=== PATIENT | female | born 1940 | race Caucasian/White ===

== ENCOUNTER → 2016-11-01 | Outpatient (CLI) | payer OTHER, MEDICARE ==
[~2016-11-01] VITALS: Ht 160 cm; Wt 82.3 kg
[~2016-11-01] MED LIST: ACCUNEB0.63 MG/3; ALPRAZOLAM 0.0.25 M1 PO; ANASPAZ0.125 MG PO; ANTIVERT25 MG PO; APAP500; ASPIRIN EC81 M1 PO; ATIVAN0.5 MG PO; ATORVASTATIN CA40 MG PO; ATROVENT HFA14 GM INH; BACTRIM DS TAB1 EACH PO; BENZONATATE100 MG PO; CELEXA10 MG PO; LEVOTHYROXINE0.05 MG PO; LOVASTAT40 PO; MOBIC15 MG PO; MULTIVITAMINS1 EAC7 PO; NORCO 5-325 TA1 EACH PO; PREDNISONE 10 M10 MG PO; PRILOSEC 20 MG20 MG PO; PROAIR HFA8.5 GM INH; QUESTRAN LIGHT P4 GM PO; SPIRIVA INH; SYMBICORT160 MCG/4. INH; TRAMADOL 50 MG50 MG PO; VITAMIN D-32000 UNIT PO; ZOFRAN ODT4 MG PO
--- NOTE | ~2016-11-01 | HPC ---
[address] [address] PAIN MANAGEMENT CONSULTATION Name: CHAR JONES Room #: REG DALLAS Amaro#: [id number] Admission: 11/01/16 Attend Phys: Simeon Jacques DO Discharge: Date of : 39 Report #: [id number] THIS REPORT FOR: //name// CC: Simeon Sloan MD DATE OF SERVICE: 11/01/2016 DATE OF SERVICE: 11/01/2016 CHIEF COMPLAINT: Bilateral knee pain. HISTORY OF PRESENT ILLNESS: As you know, patient is a very pleasant 75-year-old female, who suffers from bilateral knee pain due to severe osteoarthritis. She was originally seen in our clinic for low back pain for which we treated with epidural injections successfully. She continues to experience bilateral knee pain and has undergone one Synvisc injection series with good efficacy. She returns today for the second in a staged procedure of Synvisc injections with plans to complete this series 2 weeks from today. She returns today for Synvisc injections placing pain score at around 5/10. States the pain is chronic, aching, cramping and shooting in sensation, exacerbated with weightbearing and standing as well as walking, improves with sitting and medications. She returns today for the second in the series of Synvisc injections. ALLERGIES: No known drug allergies. CURRENT MEDICATIONS: Meclizine, hydrocodone, citalopram, atorvastatin, lorazepam, multivitamin, Symbicort, albuterol, omeprazole, cholecalciferol, levothyroxine, aspirin, and acetaminophen. PHYSICAL EXAMINATION: VITAL SIGNS: Blood pressure 135/66, pulse 88, respiratory rate 16, unlabored. The patient is 95% on room air. Height 5 feet 3 inches tall, weight 181.3 pounds, BMI calculated at 31.1. GENERAL: Well developed, well nourished, well hydrated exogenously obese 75-year-old female appearing stated age. She is placing pain score today at approximately 5/10. HEENT: Normocephalic, atraumatic. Pupils equal, round, reactive to light. Extraocular muscles are intact. EXTREMITIES: Show no clubbing, no cyanosis, no edema. MUSCULOSKELETAL: Active and passive range of motion knees noted to cause intensification of pain. Standing from a seated position also intensifies pain, walk is mildly antalgic. Appears to be favoring left lower extremity over right. Position improves pain. Lying position, improves pain. [address] [address] PAIN MANAGEMENT CONSULTATION Name: CHAR JONES Room #: REG CLI [facility].#: [id number] Admission: 11/01/16 Attend Phys: Simeon Jacques DO Discharge: Date of : 39 Report #: [id number] ASSESSMENT: 1. Bilateral knee pain. 2. Bilateral osteoarthritis of the knees. 3. Chronic intractable pain. PLAN: 1. The patient has returned today in followup visit to undergo intraarticular injections with Synvisc. This is the second in the staged procedure that she is planning to undergo We have consented the patient to undergo procedure. She states she understands her risks and benefits and does wish to proceed. 2. No medication changes were made at today's visit. The patient continue current medical therapy as previously prescribed. 3. The patient is to return to our clinic in 2 weeks. At that time, undergo the 3rd and final of the Synvisc injections in the 6-month period. PROCEDURE NOTE DESCRIPTION OF PROCEDURE: Bilateral intraarticular knee injections with Synvisc. After obtaining written consent, the patient was taken back to fluoroscopy suite, placed in a supine position on the radiolucent table. The image intensifier was then brought into position over the knees and x-ray imaging was obtained in AP fashion. The area of the lateral knee, both left and right side were prepped and draped with chlorhexidine. A #27 gauge 1-1/4 inch needle was used to anesthetize skin and subcutaneous tissue, with 2 mL 1% lidocaine on the left and 2 mL 1% lidocaine on the right. This needle was then removed. The second #25 gauge 2-inch needle was advanced under fluoroscopic guidance into the knee joint. After aspiration noted to be negative for heme, 2 mL of Synvisc hyaline G-F 20 was injected in each knee, needles retracted half way, flushed with 1 mL of 1% lidocaine and removed from each of the joints. Sterile bandage was placed over each of the injection sites. There were no motor deficits present after the procedure. The patient tolerated procedure well, carefully escorted go to recovery in stable condition. No apparent complications. After meeting discharge criteria, the patient discharged home. <ELECTRONICALLY SIGNED> By: Simeon Jacques DO 11/02/16 0743 [id number] 1236 Simeon Jacques DO /nt
[2016-11-01 09:54] VITALS: BP 135/66
== END | disposition home or self-care (01) ==
LOC: PAIN 10-25 14:45
DX: M16.0 Bilateral primary osteoarthritis of hip (principal); F41.9 Anxiety disorder, unspecified; G89.29 Other chronic pain; Z87.891 Personal history of nicotine dependence

== ENCOUNTER → 2017-02-14 | Outpatient (CLI) | payer OTHER, MEDICARE ==
[~2017-02-14] VITALS: Ht 160 cm; Wt 78.0 kg
--- NOTE | ~2017-02-14 | HPC ---
[facility] [place] [place] [address] PAIN MANAGEMENT CONSULTATION Name: CHAR JONES Room #: REG DALLAS Prem#: [id number] Admission: 02/14/17 Attend Phys: Simeon Jacques DO Discharge: Date of : 39 Report #: [id number] THIS REPORT FOR: //name// CC: Simeon Sloan MD DATE OF SERVICE: 02/14/2017 REFERRING PHYSICIAN: Shanique Sloan M.D. CHIEF COMPLAINT: Bilateral knee pain. HISTORY OF PRESENT ILLNESS: As you know, the patient is a 76-year-old female who returns today in followup visit to undergo next in the series of Synvisc injections. She reports good analgesic benefit with these injections. The last injection was 11/15/2016. She has been doing well with these injections, but has had a slow and progressive return of symptoms. Her symptoms are exacerbated with walking and weightbearing. She returns today requesting next in the series of Synvisc injections in hopes of building on the success of previous intervention. She is reporting about an 80% improvement in symptoms with these injections. Pain today is rated at 6/10. ALLERGIES: No known drug allergies. CURRENT MEDICATIONS: Benzonatate, Bactrim, meclizine, hydrocodone, citalopram, atorvastatin, lorazepam, multivitamin, Symbicort, albuterol, omeprazole, cholecalciferol, levothyroxine, aspirin and acetaminophen. SOCIAL HISTORY: The patient denies tobacco, alcohol, IV or illicit drug use. She is unaccompanied today. IMAGING: No new imaging available. PHYSICAL EXAMINATION: VITAL SIGNS: Blood pressure 121/63, pulse is 90 and respiratory rate 16, unlabored. The patient is 96% on room air. Height 5 feet 3 inches tall, weight 172 pounds and BMI at 30.5. GENERAL: Well-developed, well-nourished and well-hydrated 76-year-old female, appearing her stated age. She is placing current pain score at 6/10. HEENT: Normocephalic, atraumatic. Pupils equal, round and reactive to light. Extraocular muscles are intact. EXTREMITIES: Show no clubbing, no cyanosis, no edema. MUSCULOSKELETAL: Active and passive range of motion of the knees bilaterally cause intensification of pain. There is no laxity in the ligamentous structures. Weightbearing causes intensification of pain, left greater than [facility] [address] [place] [address] PAIN MANAGEMENT CONSULTATION Name: CHAR JONES Room #: REG CLI [facility]#: [id number] Admission: 02/14/17 Attend Phys: Simeon Jacques DO Discharge: Date of : 39 Report #: [id number]. ASSESSMENT: 1. Bilateral knee pain. 2. Bilateral knee osteoarthritis. 3. Chronic intractable pain. PLAN: 1. The patient returns today in followup visit to undergo Synvisc injection in the bilateral knees. She has done very well with these Synvisc injections in the past and is hopeful to see similar improvement today. The patient has been advised of risks and benefits of the procedure. These risks include but are not necessarily limited to bleeding, bruising, infection, worsening pain, no relief of pain, also risk of temporary or permanent muscle weakness, temporary or permanent nerve damage or possible joint destruction. The patient states she understood and wished to proceed. 2. No medication changes were made at today's visit. The patient to just continue current medical therapy as previously prescribed. 3. The patient will return to our clinic on an as needed basis for the next in the series of Synvisc injections. If the patient does not note good long-term efficacy with this, I would recommend the patient be seen by orthopedic surgery, Dr. Jose Carlos Ureña in particular, to discuss treatments for bilateral knee osteoarthritis. PROCEDURE NOTE PROCEDURE: Bilateral intra-articular knee injections with Synvisc under fluoroscopic guidance. DESCRIPTION OF PROCEDURE: After obtaining written consent, the patient was taken back to fluoroscopy suite, placed in a supine position on a radiolucent table. Image intensifier was then brought into position over the left knee and x-ray imaging was obtained in the AP fashion. The area of the lateral knee was then prepped and draped with chlorhexidine. A 27-gauge 1-1/4 inch needle was used to anesthetize skin and subcutaneous tissue with 2 mL of 1% lidocaine. A 25-gauge 2-inch needle was then advanced under fluoroscopic guidance into the knee joint. After negative aspiration for heme, 2 mL of Synvisc Hyaline G-F 20 was injected in the left knee. Needle was then retracted senior care, flushed with 1 mL of 1% lidocaine and removed. Sterile bandage was placed over this injection site. Our attention was then directed to the right knee. Image intensifier was then brought into position over the right knee and an AP imaging was obtained. The lateral portion of the knee was then prepped and draped in aseptic fashion using chlorhexidine. A 27-gauge 1-1/4 inch needle was then used to anesthetize skin [address] [address] PAIN MANAGEMENT CONSULTATION Name: CHAR JONES Room #: REG [place]AS Amaro#: [id number] Admission: 02/14/17 Attend Phys: Simeon Jacques DO Discharge: Date of : 39 Report #: [id number] and subcutaneous tissue with 2 mL of 1% lidocaine. A 25-gauge 2-inch needle was then advanced under fluoroscopic guidance into the knee joint itself. After negative aspiration for heme, 2 mL of Synvisc Hyaline G-F 20 was injected into the right knee and the needle was then retracted senior care, flushed with 1 mL of 1% lidocaine. Needle was then removed. Sterile bandage placed over the injection site. The patient tolerated procedure well, carefully escorted to the recovery in stable condition. No apparent complications. After meeting discharge criteria, the patient discharged home. By: 0824 1303 Simeon Jacques DO /nt
[2017-02-14 12:45] VITALS: BP 121/63
== END | disposition home or self-care (01) ==
LOC: PAIN 07:46
DX: M17.0 Bilateral primary osteoarthritis of knee (principal); G89.29 Other chronic pain; J44.1 Chronic obstructive pulmonary disease with (acute) exacerbation

== ENCOUNTER → 2017-02-28 | Outpatient (CLI) | payer OTHER, MEDICARE ==
[~2017-02-28] VITALS: Ht 162.6 cm; Wt 78.9 kg
--- NOTE | ~2017-02-28 | HPC ---
[facility] [place] [address] PAIN MANAGEMENT CONSULTATION Name: CHAR JONES Room #: REG D[place]AS kT.#: [id number] Admission: 02/28/17 Attend Phys: Simeon Jacques DO Discharge: Date of : 39 Report #: [id number] THIS REPORT FOR: //name// CC: Simeon Sloan MD DATE OF SERVICE: 02/28/2017 DATE OF SERVICE: 02/28/2017 CHIEF COMPLAINT: Bilateral knee pain. HISTORY OF PRESENT ILLNESS: As you know, the patient is a 76-year-old female, who returns today in followup visit to undergo the next in a series of Synvisc injections. The patient reported good analgesia with the previous Synvisc injection performed on 02/14/2017. This is the second in the series of Synvisc injections for this series. She has done very well with pain today, rated only 6/10 that is chronic in nature. Exacerbated with weightbearing and walking, improves with [facility] medications and Synvisc procedures. She returns today for the next in a series of Synvisc injections in hopes of improving pain for a long period of time. ALLERGIES: No known drug allergies. CURRENT MEDICATIONS: Benzonatate, Bactrim, meclizine, hydrocodone, citalopram, atorvastatin, lorazepam, multivitamin, Symbicort, albuterol, omeprazole, cholecalciferol, levothyroxine, aspirin, and acetaminophen. SOCIAL HISTORY: The patient denies tobacco, alcohol, IV or illicit drug use. She is retired. She is unaccompanied today. IMAGING: No new imaging available. PHYSICAL EXAMINATION: VITAL SIGNS: Blood pressure 125/62, pulse is 81, respiratory rate 16, unlabored. The patient is 100% on room air, height 5 feet 4 inches tall, weight 174 pounds, BMI calculated 29.9. GENERAL: Well developed, well nourished, well hydrated 76-year-old female appearing stated age, placing current pain score 6/10. HEENT: Normocephalic, atraumatic. Pupils equal, round, reactive to light. EXTREMITIES: Show no clubbing, no cyanosis, no edema. MUSCULOSKELETAL: The patient has pain with standing from a seated position and weightbearing exacerbates symptoms. Passive and active range of motion of the knees are met with increasing pain. Mild restrictions. There is no ligamentous laxity. [address] [address] PAIN MANAGEMENT CONSULTATION Name: CHAR JONES Room #: REG CLI [facility]#: [id number] Admission: 02/28/17 Attend Phys: Simeon Jacques DO Discharge: Date of : 39 Report #: [id number] ASSESSMENT: 1. Bilateral knee pain. 2. Bilateral knee osteoarthritis. 3. Chronic intractable pain. PLAN: 1. The patient has returned today in followup visit for the second in series of Synvisc injections. We have achieved authorization to undergo this portion of the procedure. We have obtained the Synvisc injections to be provided today. I have discussed with the patient the risks of the procedure itself. These risks include but are not necessarily limited to bleeding, bruising, infection, worsening pain, no relief of pain, also risk of temporary or permanent muscle weakness, temporary or permanent nerve damage and joint destruction. The patient states understood and wished to proceed. 2. No medication changes were made at today's visit. The patient will continue current medical therapy as previously prescribed. 3. The patient will return to our clinic in 2 weeks for the third in the series of Synvisc injections. DESCRIPTION OF PROCEDURE: Bilateral intraarticular knee injections with Synvisc under fluoroscopic guidance. After obtaining written consent, the patient was taken back to fluoroscopy suite, placed in prone position on a radiolucent table. Image intensifier was then brought into position over the left knee and AP imaging was obtained. The area of the lateral knee was then prepped and draped in aseptic fashion using chlorhexidine. A #27-gauge 1-1/4 inch needle was then used to anesthetize skin and subcutaneous tissue with 1 mL of 1% lidocaine preservative free. A #25 gauge 2-inch needle was then advanced under fluoroscopic guidance into the knee joint. This was done under live fluoroscopy. After negative aspiration for heme, 2 mL of Synvisc hyaline was injected in the left knee. Needle was retracted intermediate, flushed with 1 mL of 1% lidocaine and removed. Sterile bandage was placed over this injection site. Our attention was then directed to the right knee. Image intensifier was then brought into position over the right knee. AP imaging was obtained. The lateral portion of the knee was then prepped and draped in aseptic fashion using chlorhexidine. A #27-gauge 1-1/4 inch needle was then used to anesthetize skin and subcutaneous tissue with 1.5 mL of lidocaine 1% with preservative-free lidocaine. A #25-gauge 2-inch needle was then advanced under fluoroscopic guidance into the knee joint. After negative aspiration for heme, 2 mL of Synvisc hyaline G-F20 was injected into the right knee and needle was then retracted intermediate, flushed with 1 mL of 1% lidocaine and removed. Sterile bandage was placed over injection site. [address] [address] PAIN MANAGEMENT CONSULTATION Name: CHAR JONES Room #: REG D[place]AS Amaro#: [id number] Admission: 02/28/17 Attend Phys: Simeon Jacques DO Discharge: Date of : 39 Report #: [id number] The patient tolerated procedure well, carefully escorted to the recovery room in stable condition. No apparent complications. After meeting discharge criteria, the patient discharged home. <ELECTRONICALLY SIGNED> By: Simeon Jacques DO 03/08/17 0937 0728 5 Simeon Jacques DO /nt
[2017-02-28 11:05] VITALS: BP 125/62
== END | disposition home or self-care (01) ==
LOC: PAIN 02-21 06:45
DX: M17.0 Bilateral primary osteoarthritis of knee (principal); G89.29 Other chronic pain; J44.1 Chronic obstructive pulmonary disease with (acute) exacerbation

== ENCOUNTER → 2017-03-14 | Outpatient (CLI) | payer OTHER, MEDICARE ==
[~2017-03-14] VITALS: Ht 162.6 cm; Wt 79.0 kg
--- NOTE | ~2017-03-14 | HPC ---
[facility] [place] [address] PAIN MANAGEMENT CONSULTATION Name: CHAR JONES Room #: REG D[place]AS Prem#: [id number] Admission: 03/14/17 Attend Phys: Simeon Jacques DO Discharge: Date of : 39 Report #: [id number] THIS REPORT FOR: //name// CC: Simeon Sloan DATE OF SERVICE: 03/14/2017 CHIEF COMPLAINT: Bilateral knee pain. HISTORY OF PRESENT ILLNESS: As you know, the patient is a very pleasant 76-year-old female who returns today in followup visit for the third in the series of Synvisc injections. She has reported good analgesia with the first two in the series, now reporting pain score 4/10. States her pain is aching and sharp in sensation; exacerbated with walking and weightbearing; improves with sitting, medications and these injections. She returns today for the third and final in the series of Synvisc injections in the 6 months. She is placing pain score today at 4/10. She has had no change in her medical history in the past 2 weeks. ALLERGIES: No known drug allergies. CURRENT MEDICATIONS: Benzonatate, Bactrim, meclizine, hydrocodone, citalopram, atorvastatin, lorazepam, multivitamin, Symbicort, albuterol, omeprazole, cholecalciferol, levothyroxine, aspirin, and acetaminophen. SOCIAL HISTORY: The patient denies tobacco, alcohol, IV or illicit drug use. She is retired, unaccompanied today. IMAGING: No new imaging of the knees is available. PHYSICAL EXAMINATION: VITAL SIGNS: Blood pressure 121/63, pulse 77, respiratory rate 16 and unlabored. The patient is 98% on room air. Height 5 feet 4 inches tall, weight 174.2 pounds, BMI calculated at 29.9. GENERAL: Well-developed, well-nourished, well-hydrated 76-year-old female appearing stated age. Pain is rated at 4/10 age. HEENT: Normocephalic, atraumatic. Pupils equal, round, reactive to light. EXTREMITIES: Show no clubbing, no cyanosis, no edema. MUSCULOSKELETAL: The patient does elicit pain with active and passive range of motion of the knees themselves. There is mild restriction of motion secondary to pain. Lateral collateral and medial collateral ligaments appear intact. Drawer tests negative. ASSESSMENT: [address] [address] PAIN MANAGEMENT CONSULTATION Name: CHAR JONES Room #: REG CLNapoleon Amaro#: [id number] Admission: 03/14/17 Attend Phys: Simeon Jacques DO Discharge: Date of : 39 Report #: [id number] 1. Bilateral knee pain. 2. Bilateral knee osteoarthritis. 3. Chronic intractable pain secondary to osteoarthritis. PLAN: 1. The patient returns today in followup visit to undergo the third and the final of the 6-month series of Synvisc injections. The patient has had a steady improvement in symptoms, now reporting pain score 4/10. She states she is able to stand for longer periods of time and walk for longer periods of time with the previous two Synvisc injections. She is hopeful to see a good improvement in pain and resolution of some of her remaining pain with the injections today. She has been advised of risks and benefits of the procedure, states she understood and does wish to proceed. 2. No medical changes were made in today's appointment. She is to continue current medical therapy as previously prescribed. 3. The patient will return to our clinic on an as needed basis, we can restart the next in the series of Synvisc injections 6 months from the initial bilateral injections of 11/15/2016. PROCEDURE NOTE DESCRIPTION OF PROCEDURE: Bilateral intraarticular knee injections with Synvisc under fluoroscopic guidance. After obtaining written consent, the patient was taken back to fluoroscopy suite, placed in prone position on a radiolucent table. Image intensifier was then brought into position over the left knee and an AP imaging was obtained. The area of the lateral knee was then prepped and draped in aseptic fashion using chlorhexidine. A 27-gauge 1-1/4-inch needle was then used to anesthetize skin and subcutaneous tissue with 1 mL of 1% preservative-free lidocaine. A 25-gauge, 2-inch needle was then advanced under fluoroscopic guidance into the knee joint itself. This was done under live fluoroscopy. After negative aspiration for heme, 2 mL of Synvisc hyaline G-F20 was injected into the left knee. Needle was retracted care home, flushed with 1 mL of 1% lidocaine and removed. Sterile bandage was then placed over injection site. Our attention was then directed to the right knee. Image intensifier was then brought into position over the right knee. AP imaging was obtained. The lateral portion of the knee was prepped and draped in aseptic fashion using chlorhexidine. A 27-gauge, 1-1/4-inch needle was then used to anesthetize skin and subcutaneous tissue with 1 mL of 1% preservative-free lidocaine. A 25-gauge, 2-inch needle was then advanced under fluoroscopic guidance into the knee joint. After negative aspiration for heme, 2 mL of Synvisc hyaline G-F20 was injected into the right knee and needle was then retracted care home, flushed with 1 mL of 1% lidocaine and removed. Sterile bandage was placed over injection site. [facility] [address] [place] [place] [address] PAIN MANAGEMENT CONSULTATION Name: CHAR JONES Room #: REG CLI Tk.#: [id number] Admission: 03/14/17 Attend Phys: Simeon aJcques DO Discharge: Date of : 38 Report #: [id number] The patient tolerated the procedure well, carefully escorted to the recovery room in stable condition. No apparent complications. After meeting discharge criteria, the patient discharged home. <ELECTRONICALLY SIGNED> By: Simeon Jacques DO 03/16/17 0753 0909 1250 Simeon Jacques DO /nt
[2017-03-14 10:52] VITALS: BP 121/63
== END | disposition home or self-care (01) ==
LOC: PAIN 07:05
DX: M17.0 Bilateral primary osteoarthritis of knee (principal); G89.29 Other chronic pain; J44.1 Chronic obstructive pulmonary disease with (acute) exacerbation

== ENCOUNTER → 2017-06-06 | Outpatient (CLI) | payer OTHER, MEDICARE | LOC: RAD 13:00 | DX: R06.00 Dyspnea, unspecified (principal); R06.02 Shortness of breath ==

== ENCOUNTER 2017-10-10 11:41 | Emergency (ER) | payer OTHER, MEDICARE ==
[~2017-10-10] VITALS: Ht 162.6 cm; Wt 80.3 kg
--- NOTE | ~2017-10-10 | EKG ---
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
[2017-10-10 12:14] LABS: HEMATOCRIT 35.9 % (37.0-47.0); HEMOGLOBIN 12.2 gm/dL (12.0-15.0); MCH 29.9 pg (26.0-34.0); MCHC 34.1 g/dL (28.0-37.0); MCV 87.5 fL (80.0-100.0); RBC 4.1 mil/uL (4.20-5.00); WBC 7.9 thou/uL (4.0-11.0)
[2017-10-10 12:21] LABS: CALCIUM 9.1 mg/dL (8.5-10.1); CREATININE 0.9 mg/dL (0.6-1.0); POTASSIUM 4.2 mmol/L (3.5-5.1)
[2017-10-10] MEDS ORDERED: LEVAQUIN 750 M750 MG PO (13:00)
[2017-10-10] MEDS ORDERED: PREDNISONE 20 M20 MG PO (13:01)
== END 2017-10-10 13:10 | disposition home or self-care (01) ==
LOC: ER 11:41
PROVIDERS: Emergency Medicine
DX: J44.1 Chronic obstructive pulmonary disease with (acute) exacerbation (principal); R05 Cough; H26.9 Unspecified cataract; Z90.49 Acquired absence of other specified parts of digestive tract; Z90.710 Acquired absence of both cervix and uterus; Z98.890 Other specified postprocedural states

== ENCOUNTER 2018-10-19 10:31 | Emergency (ER) | payer OTHER, MEDICARE ==
[~2018-10-19] VITALS: Ht 162.6 cm; Wt 76.7 kg
[~2018-10-19 10:31] MED LIST changes: +AUGMENTIN 875-1 EACH PO; +FLONASE 0.05%50 MCG NASAL; +LEVAQUIN 750 M750 MG PO; +MOBIC7.5 MG PO; +MUCINEX D TABL1 EAC1 PO; +NORVASC2.5 MG PO; +PEPCID20 MG PO; +PRAVACHOL40 MG PO; +PREDNISONE 20 M20 MG PO; +PROBIOTIC1 EAC1 PO
[2018-10-19 11:28] LABS: HEMOGLOBIN 12.5 gm/dL (12.0-15.0); MCH 30.1 pg (26.0-34.0); MCHC 33.8 g/dL (28.0-37.0); MCV 89.1 fL (80.0-100.0); RBC 4.15 mil/uL (4.20-5.00); RDW 13.9 % (10.5-14.5); WBC 7.2 thou/uL (4.0-11.0)
[2018-10-19 11:36] LABS: ANION GAP 5 mmol/L (7-16); BUN 18 mg/dL (7-18); CALCIUM 8.9 mg/dL (8.5-10.1); CHLORIDE 99 mmol/L (98-107); CO2 31 mmol/L (21-32); CREATININE 0.8 mg/dL (0.6-1.0); GLUCOSE 101 mg/dL (74-106); POTASSIUM 4.2 mmol/L (3.5-5.1); SODIUM 135 mmol/L (136-145)
[2018-10-19 11:45] LABS: TROPONIN-I <0.06 ng/mL (<0.06)
[2018-10-19] MEDS ORDERED: ANTIVERT25 MG PO (12:15)
[2018-10-19] MEDS ORDERED: IPRATROPIU0.2 MG/1 M INH (12:16)
[2018-10-19] MEDS ORDERED: VITAMIN D2000 UNIT PO (12:16)
[2018-10-19] MEDS ORDERED: PREDNISONE 20 M20 MG PO (12:39)
[2018-10-19 13:40] VITALS: BP 123/58
--- NOTE | 2018-10-21 21:46 | EKG ---
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
== END 2018-10-19 13:15 | disposition home or self-care (01) ==
LOC: ER 10:31
PROVIDERS: Emergency Medicine
DX: J44.1 Chronic obstructive pulmonary disease with (acute) exacerbation (principal); Z88.8 Allergy status to other drugs, medicaments and biological substances; Z90.49 Acquired absence of other specified parts of digestive tract; Z90.710 Acquired absence of both cervix and uterus; Z90.10 Acquired absence of unspecified breast and nipple; Z96.651 Presence of right artificial knee joint

== ENCOUNTER 2018-12-02 04:45 | Inpatient (IN) | payer OTHER, MEDICARE ==
[2018-12-02] VITALS (7 sets, daily range): BP systolic 113–136; BP diastolic 54–73
[~2018-12-02] VITALS: Ht 162.6 cm; Wt 74.4 kg
[~2018-12-02 04:45] MED LIST changes: -ACCUNEB0.63 MG/3; +ALBUTEROL2.5 MG/31 INH; -APAP500; -CELEXA10 MG PO; +CELEXA40 MG PO; +IPRATROPIU0.2 MG/1 M INH; -MULTIVITAMINS1 EAC7 PO; +THERA M PLUS T1 EAC2 PO; +TYLENOL EXTRA500 MG PO; +VITAMIN D2000 UNIT PO
[2018-12-02] MEDS ORDERED: MOBIC7.5 MG PO (05:00)
[2018-12-02 05:06] LABS: ABSOLUTE NEUTROPHILS 10.8 thou/uL (1.4-8.2); BASOPHILS 0.7 % (0.0-2.0); EOSINOPHILS 3.1 % (0.0-3.0); HEMATOCRIT 35.4 % (37.0-47.0); HEMOGLOBIN 11.7 gm/dL (12.0-15.0); LYMPHOCYTES 15.3 % (24.0-44.0); MCH 29.5 pg (26.0-34.0); MCHC 33.1 g/dL (28.0-37.0); MCV 89.1 fL (80.0-100.0); MONOCYTES 6.4 % (1.0-8.0); PLATELET COUNT 477 thou/uL (150-400); POLYS 74.5 % (36.0-66.0); RBC 3.97 mil/uL (4.20-5.00); RDW 13.7 % (10.5-14.5); WBC 14.5 thou/uL (4.0-11.0)
[2018-12-02 05:20] LABS: ANION GAP 6 mmol/L (7-16); BUN 16 mg/dL (7-18); CALCIUM 9.5 mg/dL (8.5-10.1); CHLORIDE 99 mmol/L (98-107); CO2 30 mmol/L (21-32); CREATININE 0.9 mg/dL (0.6-1.0); GLUCOSE 113 mg/dL (74-106); SODIUM 135 mmol/L (136-145)
[2018-12-02 05:27] LABS: ALBUMIN 2.7 g/dL (3.4-5.0); MAGNESIUM 1.9 mg/dL (1.8-2.4); SGOT 20 U/L (15-37); SGPT 17 U/L (30-65); TOTAL BILIRUBIN 0.2 mg/dL (<0.1-1.0); TROPONIN-I <0.06 ng/mL (<0.06)
--- NOTE | 2018-12-02 06:40 | NUR ---
PT ARRIVED TO UNIT AT 0600, ON 4L O2 NC. TRANSFERRED SELF FROM CART TO BED, BECAME VERY WINDED, UNABLE TO CATCH BREATH, RT PLACED BACK ON BIPAP. PLACED ON TELE, VS AND HEIGHT/WEIGHT OBTAINED. EDUCATED ABOUT CALL LIGHT AND FALL PRECAUTIONS. STARTED IV ABX. STAYED ON BIPAP ABOUT 15 MINUTES THEN WANTED TO TRY NC AGAIN. STABLE IN ROOM, SHIFT REPORT GIVEN AT 0700.
[2018-12-02 09:38] LABS: ALBUMIN 2.7 g/dL (3.4-5.0)
[2018-12-02 10:02] LABS: TSH 12.105 uIU/mL (0.358-3.740)
[2018-12-02 11:14] LABS: BE(vivo) -0.8 mmol/L (-2 to +3); HCO3 25.3 mmol/L (22.0-26.0); PCO2 47.8 mmHg (35.0-45.0); PO2 116.7 mmHg (80.0-100.0); pH 7.341 (7.360-7.450)
[2018-12-02] MEDS ORDERED: TRELEGY ELLIPT1 EACH INH (14:06)
--- NOTE | 2018-12-02 14:12 | NUR ---
[age] YEAR OLD FEMALE ADMITTED TO 3WEST ROOM 364 UNDER THE CARE OF DR. MONTESINOS. PT WAS BROUGHT INTO THE ER PER EMS AFTER PT C/O BEING SOB FOR THREE HOURS AT HOME. PT ALERT AND ORIENTED TIMES FOUR. VSS, 97%4L NC, SR ON TELE. PT TOLERATES MEDS AND MEALS. PT UP TO BSC WITH ASSIST OF ONE. FAMILY AT BEDSIDE THIS AFTERNOON. WILL CONTINIUE TO MONITOR
--- NOTE | 2018-12-02 22:08 | EKG ---
[place] [address] [employer] [place] [address] ELECTROCARDIOGRAM REPORT Name: JONESCHAR Room #: 364-P ADM IN M.R.#: [id number] ������������������ Admission: 12/02/18 ������������������ Attend Phys: Kamran Gray MD Discharge: ������������������ Date of : 38 Report #: [id number] ����������������������������������������������������������������� [id number] THIS REPORT FOR: //name// [facility] ED Test Date: 2018-12-02 Test Time: 04:55:02 Pat Name: CHAR JONES Department: Room: 364 Gender: F Motor Tune Up Specialist: DEVON : 1940 Requested By: Brannon Baig Order Number: [id number] MD: Rolando Ayala Measurements Intervals [place] Rate: 111 P: 80 DC: 135 QRS: 16 QRSD: 75 T: 59 QT: 334 QTc: 454 Interpretive Statements Sinus tachycardia Multiple ventricular premature complexes Biatrial enlargement Compared to ECG 10/19/2018 11:07:51 Ventricular premature complex(es) now present Atrial abnormality now present Sinus rhythm no longer present Electronically Signed On 12-02-2018 22:08:44 INSPECTION MANAGER by Rolando Ayala [email or web address] ��������������������������������������������� <ELECTRONICALLY SIGNED> ���������������������������������������� By: Rolando Ayala MD ��������������������������������������������� 12/02/18 2208 [id number] Rolando Ayala MD /EPI
[2018-12-03 00:26] VITALS: BP 125/53
[2018-12-03 04:24] VITALS: BP 131/72
[2018-12-03 05:21] LABS: HEMOGLOBIN 10.6 gm/dL (12.0-15.0); MCH 29.6 pg (26.0-34.0); MCHC 33.2 g/dL (28.0-37.0); MCV 89.2 fL (80.0-100.0); RBC 3.58 mil/uL (4.20-5.00); RDW 13.6 % (10.5-14.5); WBC 16.8 thou/uL (4.0-11.0)
--- NOTE | 2018-12-03 05:30 | NUR ---
Requested tylenol for headache with good relief last night. She slept well during the night and woke up with just mild headache and tylenol given again this am. O2 at 3L/NC , shortness of breath with exertion. Afebrile. C/O constipation and requested dulcolax tab . Order obtained and med given to pt. Up with SBA to bathroom. Bed alarm on for safety. She calls appropriately for assistance. Making progress towards care plan goals.
[2018-12-03 05:35] LABS: CALCIUM 9.4 mg/dL (8.5-10.1); CREATININE 0.9 mg/dL (0.6-1.0); MAGNESIUM 2.1 mg/dL (1.8-2.4); POTASSIUM 4.4 mmol/L (3.5-5.1)
[2018-12-03 07:05] VITALS: BP 119/64
--- NOTE | 2018-12-03 12:25 | NUR ---
INITIAL ASSESSMENT: SW reviewed chart and spoke with nursing and attending physician. Pt was admitted from home due to COPD exacerbation. Pt is in droplet isolation. SW met with pt at bedside. Introduced role of SW. Pt is alert/orientated x 4. Pt reports she lives at home alone. Prior to admission, pt was independent with ADLs. Pt continues to drive. Pt has a cane to assist with ambulation. Pt is on nocturnal O2. Home O2 provided by [employer]. Pt states she has been using the O2 continuously since the first of the month. Pt has used HH in the past. Pt unable to recall name of HH agency. Pt will need rest/exercise oximetry to determine if pt needs O2 during the day. Pt's PCP is Dr. Shanique Sloan. Plan is for pt to discharge home when medically stable. SW is following to assist as needed with discharge planning.
--- NOTE | 2018-12-03 12:28 | NUR ---
Assess due to high nutrition screening risk identified. Visit with pt, lunch tray has just been delivered, pt states appetite now good, wt maybe down few pounds past month not feeling well. Likes the food. Low nutrition risk
[2018-12-03 16:20] VITALS: BP 119/65
--- NOTE | 2018-12-03 17:13 | NUR ---
ASSUMED CARE OF PT AT SHIFT CHANGE. PT CONTINUES WITH SOB WITH AMBULATION AND MOVING IN BED. O2 SAT REMAINED IN 90'S ON CONTINUOUS PULSE OX. IV SITE ROTATED DUE TO INFILTRAION/IRRITATION, NO REDNESS NOTED. UP WITH SBA. PT GIVEN PRN MIRALAX FOR CONSTIPATION, NO RESULTS THUS FAR. ASSESSMENTS PER CHART. VSS. WILL CONT TO MONITOR AND FOLLOW POC.
[2018-12-03 19:53] VITALS: BP 120/88
[2018-12-04 03:17] VITALS: BP 144/66
--- NOTE | 2018-12-04 04:40 | NUR ---
Received pt. on 3L/NC.Verbalized improvement in her breathing though she still gets short of breath with minimal exertion. Bed alarm for safety. She calls appropriately for assistance. Up with SBA to bathroom. Reported a good bm yesterday after laxative given. Making progress towards care plan goals.
[2018-12-04 06:07] LABS: HEMATOCRIT 31.7 % (37.0-47.0); HEMOGLOBIN 10.3 gm/dL (12.0-15.0); MCH 29.2 pg (26.0-34.0); MCHC 32.6 g/dL (28.0-37.0); MCV 89.6 fL (80.0-100.0); PLATELET COUNT 436 thou/uL (150-400); RBC 3.53 mil/uL (4.20-5.00); RDW 13.9 % (10.5-14.5); WBC 18.1 thou/uL (4.0-11.0)
[2018-12-04 06:22] LABS: CALCIUM 9.1 mg/dL (8.5-10.1); CREATININE 0.9 mg/dL (0.6-1.0); MAGNESIUM 2.1 mg/dL (1.8-2.4); POTASSIUM 4.1 mmol/L (3.5-5.1)
[2018-12-04 06:44] LABS: FOLIC ACID 13.9 ng/mL (8.6-58.9)
[2018-12-04 06:59] LABS: ABSOLUTE NEUTROPHILS 16.8 thou/uL (1.4-8.2); LARGE PLATELETS OCCASIONAL
[2018-12-04 07:30] VITALS: BP 144/68
[2018-12-04 12:45] VITALS: BP 162/65
[2018-12-04 16:52] VITALS: BP 135/62
--- NOTE | 2018-12-04 17:03 | NUR ---
SW reviewed chart and spoke with nursing and attending physician. Pt is progressing towards goals for discharge. Therapy is working with pt. Recommendation made for pt to return home. SW is following to assist as needed with discharge planning.
--- NOTE | 2018-12-04 18:41 | NUR ---
ASSUMED PATIENT CARE AT 0700. A/O X4. TOLERATED ON 4L/NC. STB ASSISTED WHEN WALK. PROGRESSING TOWARDS POC GOALS.
[2018-12-04 20:30] VITALS: BP 143/56
--- NOTE | 2018-12-05 02:18 | NUR ---
PATIENT IS ALERT AND ORIENTED. PATIENT IS SBA WITH WALKER TO BATHROOM. PATIENT IS ON 4L NC. PATIENTS LBM WAS THE 18TH. PAITENT IS NSR ON TELE. PATIENT PENDING DISCHARGE TODAY. PATIENTS PAIN IS CONTROLLED WITH TYLENOL. WCM. PATIENT IS PROGRESSING TO GOALS
[2018-12-05 04:47] LABS: CALCIUM 9.2 mg/dL (8.5-10.1); CREATININE 0.9 mg/dL (0.6-1.0); MAGNESIUM 2.1 mg/dL (1.8-2.4); POTASSIUM 3.8 mmol/L (3.5-5.1)
[2018-12-05 04:51] LABS: HEMATOCRIT 32.3 % (37.0-47.0); HEMOGLOBIN 10.6 gm/dL (12.0-15.0); MCH 29.2 pg (26.0-34.0); MCHC 32.8 g/dL (28.0-37.0); MCV 89.1 fL (80.0-100.0); RBC 3.63 mil/uL (4.20-5.00); RDW 13.9 % (10.5-14.5); WBC 14.9 thou/uL (4.0-11.0)
[2018-12-05 04:55] VITALS: BP 150/71
[2018-12-05 07:30] VITALS: BP 155/65
--- NOTE | 2018-12-05 12:21 | NUR ---
SW reviewed chart and spoke with nursing and attending physician. Pt is progressing towards goals for discharge. Discharge home is anticipated for tomorrow. Rest/exercise oximetry ordered to determine if pt will need continuous O2 at time of discharge. Pt is normally on nocturnal O2. HEATHER is following to assist as needed with discharge planning.
[2018-12-05 13:25] VITALS: BP 132/57
[2018-12-05 15:17] VITALS: BP 144/82
--- NOTE | 2018-12-05 16:59 | NUR ---
ASSUMED PATIENT CARE AT 0700. A/O X4. TIRATED 02 TO 2L/NC. DENIES PAIN. PROGRESSING TOWARDS POC GOALS.
[2018-12-05 19:14] VITALS: BP 157/84
--- NOTE | 2018-12-06 04:06 | NUR ---
Assumed care of pt at 1900. Pt alert and oriented x4. SBA to the bathroom. On 2L O2. Possible D/C in the am. C/o headache. Prn acetaminophen administered and relief obtained. Pt calls appropriately. Will continue to monitor and assist with need.
[2018-12-06 04:17] VITALS: BP 151/78
[2018-12-06 05:45] LABS: HEMATOCRIT 34.6 % (37.0-47.0); HEMOGLOBIN 11.1 gm/dL (12.0-15.0); MCH 28.3 pg (26.0-34.0); MCHC 32.1 g/dL (28.0-37.0); MCV 88.1 fL (80.0-100.0); RBC 3.92 mil/uL (4.20-5.00); RDW 13.6 % (10.5-14.5); WBC 12.6 thou/uL (4.0-11.0)
[2018-12-06 05:58] LABS: CALCIUM 8.9 mg/dL (8.5-10.1); CREATININE 0.8 mg/dL (0.6-1.0); MAGNESIUM 2.2 mg/dL (1.8-2.4); POTASSIUM 3.7 mmol/L (3.5-5.1)
[2018-12-06 07:23] VITALS: BP 164/84
[2018-12-06] MEDS ORDERED: PREDNISONE 10 M10 MG PO (08:43)
[2018-12-06] MEDS ORDERED: AUGMENTIN 875-1 EACH PO (08:43)
[2018-12-06 11:02] VITALS: BP 164/84
[2018-12-06 11:14] VITALS: BP 132/64
--- NOTE | 2018-12-06 14:39 | NUR ---
DISCHARGE NOTE: SW reviewed chart and spoke with nursing and attending physician. Pt is medically stable for discharge home today. Rest/exercise oximetry completed. Pt does need 2L of O2 when ambulating. Pt's ride was at the bedside. Pt was discharged proir to SW visit. SW faxed clinical info and script to [facility] ( and [phone]) and spoke with Mayela in intake to notify of new orders. Portable tanks will be delivered to pt's home. No additional SW needs identified at this time, but is available to assist should needs arise.
== END 2018-12-06 14:24 | disposition home or self-care (01) | DRG 871 ==
LOC: ER 04:45 → EROBS 05:07 → 3W 05:07 → ENTRNSPT 12-06 14:12 → EDTRNSPTSTS 12-06 14:15 → 3W 12-06 14:24
PROVIDERS: Emergency Medicine; Internal Medicine; Nurse Practitioner Family; ADMIT Hospitalist
PROC: 5A09357 Assistance with Respiratory Ventilation, Less than 24 Consecutive Hours, Continuous Positive Airway Pressure (ICD-10-PCS; principal; 2018-12-02)
DX: A41.9 Sepsis, unspecified organism (principal); J96.21 Acute and chronic respiratory failure with hypoxia; J44.1 Chronic obstructive pulmonary disease with (acute) exacerbation; E46 Unspecified protein-calorie malnutrition; J20.9 Acute bronchitis, unspecified; F41.1 Generalized anxiety disorder; E78.5 Hyperlipidemia, unspecified; K75.9 Inflammatory liver disease, unspecified; Z60.2 Problems related to living alone; D72.829 Elevated white blood cell count, unspecified; D63.8 Anemia in other chronic diseases classified elsewhere; F32.9 Major depressive disorder, single episode, unspecified; Z79.1 Long term (current) use of non-steroidal anti-inflammatories (NSAID); Z68.28 Body mass index [BMI] 28.0-28.9, adult; Z90.49 Acquired absence of other specified parts of digestive tract; Z90.710 Acquired absence of both cervix and uterus; Z90.10 Acquired absence of unspecified breast and nipple; Z98.49 Cataract extraction status, unspecified eye; Z88.8 Allergy status to other drugs, medicaments and biological substances; Z79.82 Long term (current) use of aspirin; Z79.899 Other long term (current) drug therapy
CPT/HCPCS: 10879

== ENCOUNTER 2019-02-17 23:17 | Inpatient (IN) | payer OTHER, MEDICARE ==
[~2019-02-17] VITALS: Ht 170.2 cm; Wt 80.4 kg
[~2019-02-17 23:17] MED LIST changes: +TRELEGY ELLIPT1 EACH INH
[2019-02-17 23:18] VITALS: BP 175/81
[2019-02-17 23:34] LABS: BE(vivo) 0.8 mmol/L (-2 to +3); HCO3 26.7 mmol/L (22.0-26.0); PCO2 47.9 mmHg (35.0-45.0); PO2 241.4 mmHg (80.0-100.0); pH 7.364 (7.360-7.450); sO2 99.5 % (92.0-98.0)
[2019-02-17 23:47] LABS: HEMOGLOBIN 12.4 gm/dL (12.0-15.0); MCH 29.4 pg (26.0-34.0); MCHC 33.4 g/dL (28.0-37.0); MCV 87.9 fL (80.0-100.0); PLATELET COUNT 419 thou/uL (150-400); RBC 4.21 mil/uL (4.20-5.00); RDW 15.1 % (10.5-14.5); WBC 15.5 thou/uL (4.0-11.0)
[2019-02-17 23:56] LABS: ANION GAP 5 mmol/L (7-16); BUN 17 mg/dL (7-18); CALCIUM 9.4 mg/dL (8.5-10.1); CHLORIDE 99 mmol/L (98-107); CO2 31 mmol/L (21-32); GLUCOSE 117 mg/dL (74-106); POTASSIUM 4.4 mmol/L (3.5-5.1); SODIUM 135 mmol/L (136-145)
[2019-02-18 00:06] LABS: ALBUMIN 3.3 g/dL (3.4-5.0); SGOT 24 U/L (15-37); SGPT 21 U/L (30-65); TOTAL BILIRUBIN 0.3 mg/dL (<0.1-1.0); TOTAL PROTEIN 7.9 g/dL (6.4-8.2); TROPONIN-I <0.06 ng/mL (<0.06)
[2019-02-18 00:30] LABS: ABSOLUTE NEUTROPHILS 13.8 thou/uL (1.4-8.2)
[2019-02-18 00:39] VITALS: BP 149/69
[2019-02-18 01:15] VITALS: BP 160/82
--- NOTE | 2019-02-18 05:05 | NUR ---
PT ARRIVED ON UNIT FROM ER AT 0100. COMES FROM HER OWN APT. ADMITTED WITH COPD EXACERBATION. TRANSFERRING TO BEDSIDE COMMODE WITH STANDBY ASSIST. TYLENOL PROVIDING PAIN RELIEF. RESTING OFF AND ON. CALL LIGHT WITHIN REACH. WILL CONTINUE TO PROVIDE FREQUENT OBSERVATION.
[2019-02-18 06:11] LABS: HEMATOCRIT 35.9 % (37.0-47.0); HEMOGLOBIN 11.7 gm/dL (12.0-15.0); MCH 28.3 pg (26.0-34.0); MCHC 32.5 g/dL (28.0-37.0); RBC 4.12 mil/uL (4.20-5.00); RDW 14.9 % (10.5-14.5); WBC 25.6 thou/uL (4.0-11.0)
[2019-02-18 06:21] LABS: CALCIUM 9.3 mg/dL (8.5-10.1)
[2019-02-18 07:38] VITALS: BP 133/68
--- NOTE | 2019-02-18 08:57 | EKG ---
[place] [address] [address] [place] [address] ELECTROCARDIOGRAM REPORT Name: CHAR JONES Room #: 358-P ADM IN M.R.#: [id number] ������������������ Admission: 02/18/19 ������������������ Attend Phys: Peter Rodas Discharge: ������������������ Date of : 38 Report #: [id number] ����������������������������������������������������������������� [id number] THIS REPORT FOR: //name// [facility] ED Test Date: 2019-02-17 Test Time: 23:55:24 Pat Name: CHAR JONES Department: Room: 358 Gender: F Blueprint Reader: bravo : 1940 Requested By: Charlotte Garcia Order Number: [id number] MD: Arnold Hdz Measurements Intervals [place] Rate: 123 P: 81 MT: 142 QRS: -11 QRSD: 76 T: 64 QT: 320 QTc: 458 Interpretive Statements Sinus tachycardia Consider right atrial enlargement Poor R wave progression Compared to ECG 12/02/2018 04:55:02 Premature ventricular complexes are no longer present Electronically Signed On 02-18-2019 8:57:44 CDT by Arnold Hdz [email or web address] ��������������������������������������������� <ELECTRONICALLY SIGNED> ���������������������������������������� By: Arnold Hdz MD, [facility] ��������������������������������������������� 02/18/19 0857 [id number] Arnold Hdz MD, [facility] /EPI
[2019-02-18 11:19] VITALS: BP 124/50
--- NOTE | 2019-02-18 14:41 | NUR ---
assessment: CM REVIEWED CHART AND MET WITH PATIENT AT THE BEDSIDE. PT WAS ADMITTED WITH COPD EXACERBATION. PT CURRENTLY LIVES IN AN INDEPENDENT APT ALONE. PT REPORTS THAT SHE USES A CANE AT TIMES FOR AMBULATION. PT REPORTS SHE HAS A WALKER AT HOME BUT DOES NOT USE IT. PT REPORTS THAT SHE HAS A GRAB BAR AND A SHOWER CHAIR. PT REPORTS HAVING A NEBULIZER AND OXYGEN ARRANGED AT HOME 2L CONTINUOUS THROUGH [employer]. CM DISCUSSED ROLE. PT REPORTS THAT SHE HAD HH BUT WAS OVER A YR AGO AND IS UNSURE THE AGENCY. PT REPORTS THAT SHE TWO CHILDREN WHO LIVE IN [place] AND A NIECE WHO LIVES IN [place]. PT REPORTS HER NIECE CHRISTIANO HELPS HER MOST OFTEN. PT STATES SHE HAS LOOKED INTO ASSISTED LIVING IN THE PAST AND MAY BE INTERESTED TO MOVE TO AL SOON. CM PROVIDED PATIENT WITH A LIST OF AL FACILITIES. PT/OT TO SEE PATIENT AND PENDING EVALS PT MAY BENEFIT FROM HH VS SNF AT DISCHARGE. CM WILL CONTINUE TO FOLLOW TO ASSIST NEEDED.
[2019-02-18 15:30] VITALS: BP 122/59
--- NOTE | 2019-02-18 18:30 | NUR ---
PATIENT IS REALLY PLEASANT. SHE CONT TO PROGRESS TOWARDS DISCHARGED GOALS. SHE AMBULATES TO BATHROOM AND ABOUT THE ROOM WITH VERY MINIMAL HELP. SHE STATES SHE IS FEELING BETTER AND SHE IS STRONGER. ON ABT AND NO ADVERSE REACTION NOTED. WILL CONT WITH PLAN OF CARE.
[2019-02-18 19:04] VITALS: BP 132/61
[2019-02-19 04:31] VITALS: BP 131/69
[2019-02-19 06:28] LABS: HEMATOCRIT 33.7 % (37.0-47.0); HEMOGLOBIN 11.1 gm/dL (12.0-15.0); MCHC 32.7 g/dL (28.0-37.0); MCV 88.7 fL (80.0-100.0); PLATELET COUNT 389 thou/uL (150-400); RDW 15.5 % (10.5-14.5); WBC 25.8 thou/uL (4.0-11.0)
--- NOTE | 2019-02-19 06:28 | NUR ---
PT ABLE TO AMBULATE TO THE RESTROOM WITH STANDBY. PT STILL STATES SHE IS GETTING A "LITTLE WINDED." PT REQUESTED SOME TYLENOL FOR HEADACHE AT 2100 ASSESSMENT. RECHECK AND PT STATES HEADACHE IS GONE. VSS. FOLLOWING POC WITH IV LISA-MED GIVEN TWICE. NO OTHER COMPLAINTS VOICED DURING HOURLY ROUNDING.
[2019-02-19 06:40] LABS: CALCIUM 9.9 mg/dL (8.5-10.1); CREATININE 1.1 mg/dL (0.6-1.0); POTASSIUM 4.2 mmol/L (3.5-5.1)
[2019-02-19 08:00] VITALS: BP 140/81
[2019-02-19 09:50] LABS: ABSOLUTE NEUTROPHILS 23.7 thou/uL (1.4-8.2); ANISOCYTOSIS 1+
[2019-02-19 11:30] VITALS: BP 148/64
--- NOTE | 2019-02-19 14:59 | NUR ---
ON-GOING ASSESSMENT: CM REVIEWED CHART AND MET WITH PATIENT AT THE BEDSIDE. PT RECOMMENDING HOME WITH HH. CM MET WITH PATIENT AT THE BEDSIDE. PT STATING SHE FEELS BETTER AND FEELS LIKE SHE IS ABLE TO RETURN HOME WITH HH AT DISCHARGE. CM DISCUSSED DIFFERENT HH OPTIONS AND PT WANTED REFERRAL SENT TO [facility], STATING SHE FEELS SHE HAS HAD THEM BEFORE. CM NOTIFIED [facility] AND THEY CAN ACCEPT HER FOR HH. CM SPOKE WITH PATIENTS JOEL ALVARADO TO UPDATE AND SHE IS OK WITH DISCHARGE PLANER. PT WILL LIKELY DISCHARGE HOME WITH [facility] TOMORROW. CM WILL CONTINUE TO FOLLOW TO ASSIST NEEDED.
[2019-02-19 15:46] LABS: URINE BILIRUBIN NEGATIVE (Negative); URINE BLOOD NEGATIVE (Negative); URINE CLARITY CLEAR; URINE COLOR YELLOW; URINE GLUCOSE-RANDOM* NEGATIVE (Negative); URINE KETONES NEGATIVE (Negative); URINE LEUKOCYTES-REFLEX NEGATIVE (Negative); URINE NITRITE-REFLEX NEGATIVE (Negative); URINE PROTEIN (DIPSTICK) NEGATIVE (Negative); URINE SPECIFIC GRAVITY <= 1.005 (1.005-1.035); URINE UROBILINOGEN 0.2 E.U./dl (0.2-1.0)
[2019-02-19 16:00] VITALS: BP 157/76
[2019-02-19 19:45] VITALS: BP 152/68
--- NOTE | 2019-02-19 19:46 | NUR ---
CONT TO PROGRESS TOWARDS DISCHARGED. AMBULATES TO BATHROOM WITH MINIMAL ASSIST. STATES SHE IS AFRAID OF GOING HOME BY HERSELF. WILL LIKE TO HAVE SOME REHAB BEFORE BEING DISCHARGED. NO COMPLAINTS OF PAIN AT THIS TIME.
[2019-02-20 03:59] VITALS: BP 148/75
--- NOTE | 2019-02-20 06:20 | NUR ---
PT IS MOVING TOWARDS DC GOALS BUT IS HAVING SOME ANXIETY ISSUES ABOUT LEAVING. SHE STATES SHE WOULD LIKE TO GO A REHAB. CAPTURED THE MRSA NASAL SWAB AND DROPPED IT OFF AT THE LAB. PT ONLY REQUEST WAS FOR SOME COFFEE. PT UP TO BATHROOM WITH STANDBY ASSIST. NON PRODUCTIVE COUGH STILL BEING HEARD. HOURLY ROUNDING.
[2019-02-20 07:23] VITALS: BP 154/87
[2019-02-20 11:26] VITALS: BP 147/81
--- NOTE | 2019-02-20 14:12 | NUR ---
DISCHARGE PLANNING. ANTICIPATED DISCHARGE FOR TOMORROW. POST ACUTE RECOMMENDED AT DISCHARGE. REFERRAL FAXED TO [facility]. CALL PLACED TO YOHANA, [facility] ADMISSION, TO NOTIFY OF REFERRAL AND PATIENTS DISCHARGE DATE AND NEEDS. YOHANA TO REVIEW AND CONTACT CM ONCE COMPLETE. UNIT CM/SW AWARE. FOLLOWINIG TO ASSIST.
--- NOTE | 2019-02-20 14:32 | NUR ---
SW reviewed chart and spoke with nursing and attending physician. Pt is progressing towards goals for discharge. Discharge to post-acute is anticipated for tomorrow. HEATHER met with pt at bedside to discuss discharge plan. SW reviewed SNF list with pt. Pt requests referral to be sent to [facility] for review. Pt states she will further discuss with her niece, Cristiane. HEATHER explained to pt that discharge is anticipated for tomorrow. Pt verbalized understanding and in agreement with plan. manufacturing planner to fax referral to [facility]. HEATHER is following to assist as needed with discharge planning.
[2019-02-20 15:38] VITALS: BP 159/81
[2019-02-20 20:11] VITALS: BP 176/92
--- NOTE | 2019-02-20 22:23 | NUR ---
NASAL SWAB RESULTED IN POSITIVE CULTURE FOR MRSA. CALLED PROVIDER, RECEIVED ORDERS FOR RX. PUT PT IN ISOLATION AND ADDED APPROPRIATE INTERVENTIONS.
[2019-02-21 04:47] VITALS: BP 174/92
[2019-02-21 07:42] VITALS: BP 177/97
[2019-02-21] MEDS ORDERED: HYDROCODONE-CH473 M1 PO (08:48)
[2019-02-21] MEDS ORDERED: MUCINEX DM ER1 EAC1 PO (08:48)
[2019-02-21] MEDS ORDERED: DOXYCYCLINE 10100 MG PO (08:48)
--- NOTE | 2019-02-21 14:12 | NUR ---
DISCHARGE NOTE: SW reviewed chart and spoke with nursing and attending physician. Pt is medically stable for discharge to [facility] today. demand planner coordinated and notified family. No additional SW needs identified at this time, but is available to assist should needs arise.
--- NOTE | 2019-02-21 16:26 | NUR ---
PATIENT DISCHARGE TO [facility]. REPORT CALL. SHE WAS IN GOOD SPIRITS. SHE WAS EXCITED TO GET SOME REHAB BEFORE GOING HOME. SHE DOES NOT SEEM TO BE IN PAIN AT THIS TIME OF DISCHARGE.
== END 2019-02-21 12:08 | DRG 189 ==
LOC: ER 23:17 → 3W 02-18 00:24 → EROBS 02-18 00:24 → 3W 02-18 00:56
PROVIDERS: Internal Medicine; Nurse Practitioner Family; Student in an Organized Health Care Education/Training Program; ADMIT Hospitalist
PROC: 5A09357 Assistance with Respiratory Ventilation, Less than 24 Consecutive Hours, Continuous Positive Airway Pressure (ICD-10-PCS; principal; 2019-02-20)
DX: J96.22 Acute and chronic respiratory failure with hypercapnia (principal); J44.1 Chronic obstructive pulmonary disease with (acute) exacerbation; E46 Unspecified protein-calorie malnutrition; K21.9 Gastro-esophageal reflux disease without esophagitis; E78.5 Hyperlipidemia, unspecified; E03.9 Hypothyroidism, unspecified; F41.9 Anxiety disorder, unspecified; D72.829 Elevated white blood cell count, unspecified; Z96.659 Presence of unspecified artificial knee joint; F32.9 Major depressive disorder, single episode, unspecified; Z68.27 Body mass index [BMI] 27.0-27.9, adult; Z90.49 Acquired absence of other specified parts of digestive tract; Z90.710 Acquired absence of both cervix and uterus; Z90.10 Acquired absence of unspecified breast and nipple; Z98.49 Cataract extraction status, unspecified eye; Z88.8 Allergy status to other drugs, medicaments and biological substances; Z79.1 Long term (current) use of non-steroidal anti-inflammatories (NSAID); Z79.52 Long term (current) use of systemic steroids; Z79.899 Other long term (current) drug therapy
CPT/HCPCS: 10879